=== PATIENT | female | born 1985 | race Caucasian/White ===

== ENCOUNTER 2017-06-05 05:59 | Day surgery (SDC) | payer OTHER ==
[2017-06-05] MEDS ORDERED: LIDOCAINE 1% 2 ML INJ ID PRN (06:19)
[2017-06-05] MEDS ORDERED: LR 1,000 ML IV ONE (06:19)
--- NOTE | 2017-06-05 07:21 | PDANEPAE ---
ANE History of Present Illness Dysphagia ANE Past Medical History - Cardiovascular History Hx Hypertension: No Hx Arrhythmias: No Hx Chest Pain: No Hx Coronary Artery / Peripheral Vascular Disease: No Hx CHF / Valvular Disease: No Hx Palpitations: No - Pulmonary History Hx COPD: No Hx Asthma/Reactive Airway Disease: No Hx Recent Upper Respiratory Infection: No Hx Oxygen in Use at Home: No Hx Sleep Apnea: No Sleep Apnea Screening Result - Last Documented: Negative - Neurologic History Hx Cerebrovascular Accident: No Hx Seizures: No Hx Dementia: No - Endocrine History Hx Diabetes: Yes Endocrine History Comment: HYPOTHYROID - Renal History Hx Renal Disorders: No - Liver History Hx Hepatic Disorders: No - Neurological & Psychiatric Hx Neurological / Psychiatric History Comment: GEN ANXIETY. PANIC ATTACKS. BIPOLAR. ADD - Cancer History Hx Cancer: No - Congenital Disorder History Hx Congenital Disorders: No - GI History Hx Gastrointestinal Disorders: Yes Gastrointestinal History Comment: CHRONIC LARYNGITIS. PHLEGM. HEARTBURN. FOOD STICKS IN THROAT - Other Health History Other Health History: FIBROMYALGIA - Chronic Pain History Chronic Pain: Yes (FIBROMYALGIA) - Surgical History Prior Surgeries: WISDOM TEETH ANE Review of Systems Review of Systems: - Exercise capacity METS (RN): 5 METS ANE Patient History - Allergies Allergies/Adverse Reactions: propranolol Allergy (Verified 05/24/17 15:51) SKIN RASH, SORES IN MOUTH trazodone Allergy (Verified 05/24/17 15:51) FACIAL SWELLING - Home Medications Home Medications: Benadryl 05/24/17 [Last Taken 5 Days Ago ~05/31/17] Dextroamphetamine Sulfate 05/24/17 [Last Taken 06/04/17 12:00] Donepezil HCl 05/24/17 [Last Taken 06/04/17 08:00] Excedrin Extra Strength Caplet 05/24/17 [Last Taken 1 Week Ago ~05/29/17] Herbals/Supplements -Info Only 05/24/17 [Last Taken 06/04/17 08:00] Ibuprofen 05/24/17 [Last Taken 06/01/17] Lamotrigine 05/24/17 [Last Taken 06/04/17 21:00] [place] Carbonate 05/24/17 [Last Taken 06/04/17 21:00] Lyrica 05/24/17 [Last Taken 06/04/17 21:00] Memantine HCl 05/24/17 [Last Taken 06/04/17 08:00] Metoprolol Succinate 05/24/17 [Last Taken 06/05/17 05:30] Seroquel 05/24/17 [Last Taken 06/04/17 21:00] Synthroid 05/24/17 [Last Taken 06/04/17 08:00] Zantac 05/24/17 [Last Taken 2 Days Ago ~06/03/17] Zolpidem Tartrate 05/24/17 [Last Taken 06/04/17 21:00] Zyrtec 05/24/17 [Last Taken 1 Week Ago ~05/29/17] - NPO status NPO Since - Liquids (Date): 06/04/17 NPO Since - Liquids (Time): 20:00 NPO Since - Solids (Date): 06/04/17 NPO Since - Solids (Time): 20:00 - Smoking Hx Smoking Status: Never smoked - Family Anes Hx Family Hx Anesthesia Complications: NEG ANE Labs/Vital Signs - Vital Signs Blood Pressure: 105/75 Heart Rate: 53 Respiratory Rate: 18 O2 Sat (%): 97 Height: 162.56 cm Weight: 58.967 kg ANE Physical Exam - Airway Neck exam: FROM Mallampati Score: Class 1 Mouth exam: normal dental/mouth exam - Pulmonary Pulmonary: no respiratory distress - Cardiovascular Cardiovascular: regular rate and rhythym - ASA Status ASA Status: II ANE Anesthesia Plan Anesthesia Plan: MAC (Possible IV GA)
[2017-06-05] MEDS ORDERED: PROPOFOL 200 MG/20 ML VIAL ONE (07:24)
[2017-06-05] MEDS ORDERED: fentaNYL 100 MCG/2 ML INJ IVP PRN (07:27)
[2017-06-05] MEDS ORDERED: NALOXONE HCL 0.4 MG/ML INJ IVP PRN (07:27)
[2017-06-05] MEDS ORDERED: ONDANSETRON 4 MG/2 ML VIAL IVP PRN (07:27)
--- NOTE | 2017-06-05 07:32 | PDGENHP ---
History & Physical Chief Complaint: globus, gerd History of Present Illness: years of gerd globus possible dysphagia Pertinent Past, Social, Family History: see office note Relevant Physical Exam: a+ox3. cta. s1s2,rrr. +BS, soft Cardiorespiratory Assessment: class 2
--- NOTE | 2017-06-05 07:55 | POSTANESTH ---
Post Anesthetic Evaluation Cardiovascular Status: Normal, Stable Respiratory Status: Normal, Stable Level of Consciousness/Mental Status: Can Participate in Eval Pain Control: Adequate, Prn Tx Ordered Nausea/Vomiting Control: Adequate, Prn Tx Ordered Complications Possibly Related to Anesthesia: None Noted
--- NOTE | 2017-06-05 08:03 | POSTOPPROG ---
Post Op Note Date of Operation: 06/05/17 Surgeon: Gregory Hatfield Anesthesiologist: Leena Anesthesia: Other (Specify) (iv general) Pre-op Diagnosis: abdo pain, gerd, dysphagia vs globus Post-op Diagnosis: erosive gastritis Indication: fabian pain, gerd, globbus vs dysphagia Procedure: egd and bx Findings: nml esoph, erosive gastritis,nml duodenum Inf/Abcess present in the surg proc area at time of surgery?: No EBL: Minimal (few ml from bx) Total fluids administered: 200ml LR Complications: none immediate
--- NOTE | 2017-06-05 08:09 | GIREPORT ---
[facility] Surgical Services - Endoscopy Department Patient Name: Farida Johnson Procedure Date: 06/05/2017 7:25 AM Patient Type: Outpatient Attending MD/ ER Physician: Richie Mccall Procedure: Upper GI endoscopy Indications: Epigastric abdominal pain, Heartburn, Dysphagia, Globus sensation Providers: Eze Hatfield MD Referring MD: Papi Rojas MD Medicines: Sedation Required Anesthesia Staff Assistance Complications: No immediate complications. Estimated blood loss: Minimal. Description of Procedure: After obtaining informed consent, the endoscope was passed under direct vision. Throughout the procedure, the patient's blood pressure, pulse, and oxygen saturations were monitored continuously. The Endoscope was intro duced through the mouth, and advanced to the third part of duodenum. The uppe r GI endoscopy was accomplished without difficulty. The patient tolerated th e procedure well. Findings: The examined esophagus was normal. Biopsies were obtained from the prox imal and distal esophagus with cold forceps for histology of suspected eosinophilic esophagitis. Moderate inflammation characterized by adherent blood, congestion (danitza a), erosions, erythema, friability, granularity and shallow ulcerations was found in the gastric antrum. Biopsies were taken with a cold forceps fo r histology. Estimated blood loss was minimal. The examined duodenum was normal. Estimated Blood Loss: Estimated blood loss was minimal. Post Op Diagnosis: - Normal esophagus. Biopsied. - Gastritis. Biopsied. - Normal examined duodenum. Recommendation: - Await pathology results. - My office will call with the pathology result with 5-7 days. If you h ave not heard from my office by 12-14, do not assume the pathology is annamaria l, please call [phone] to get the pathology reults. - Use Protonix (pantoprazole) 40 mg PO daily. Take 30-60 minutes before breakfast. - Use Zantac (ranitidine) 300 mg PO at bedtime. - Follow an antireflux regimen. Do not et within 2-3 hours of bedtime, nor during the nightime. - Avoid Aspirin and NSAID's. - Discharge patient to home (ambulatory). - Return to GI clinic as previously scheduled. - Thank you for allowing me to help in your patient's care. Do not hesi [place] to call with any questions. Attending Participation: I personally performed the entire procedure. Liu Loo M.D Eze Hatfield MD 06/05/2017 8:09:38 AM This report has been signed electronicallyMathew MD Liu Number of Addenda: 0 Note Initiated On: 06/05/2017 7:25 AM [email or web address]
[2017-06-05 08:13] VITALS: O2SAT 99
[2017-06-05 08:40] VITALS: RESP 16; TEMP 97.3
[2017-06-05 09:00] VITALS: BP 98/68; PULSE 54
== END 2017-06-05 09:01 | disposition home or self-care (01) ==
LOC: FSGY 05:59
PROVIDERS: ATTEND Internal Medicine Gastroenterology
DX: R13.10 Dysphagia, unspecified (principal); K29.70 Gastritis, unspecified, without bleeding; K21.9 Gastro-esophageal reflux disease without esophagitis; E03.9 Hypothyroidism, unspecified; M79.7 Fibromyalgia
CPT/HCPCS: J2704